=== PATIENT | male | born 2000 | race Caucasian/White ===

== ENCOUNTER 2021-02-05 22:24 | Emergency (ER) | payer SELFPAY ==
[~2021-02-05 22:24] MED LIST: FLEXERIL 10 MG10 MG PO; IBUPROFEN600 MG PO; MORPHINE SULFAT15 M1 PO
== END 2021-02-05 23:43 | disposition home or self-care (01) ==
LOC: ER1 22:24
DX: R52 Pain, unspecified (principal); Z90.89 Acquired absence of other organs; Z20.822 Contact with and (suspected) exposure to COVID-19
CPT/HCPCS: 99283; U0002